=== PATIENT | female | born 2000 | race Caucasian/White ===

== ENCOUNTER 2021-03-10 16:07 | Day surgery (SDC) | payer BC, OTHER, SELFPAY ==
[2021-03-10] VITALS (16 sets, daily range): BP systolic 98–147; BP diastolic 59–97; PULSE 64–101; RESP 12–24; TEMP 36.3–37.3; O2SAT 94–99; BMI 19.8
--- NOTE | 2021-03-10 17:23 | W.ED.ABDPA2 ---
Documented by User: Floyd Montanez DO 03/11/21 16:26 HPI - Abdominal Pain General: Chief Complaint: Abdominal Pain Stated Complaint: RLQ ABD PAIN Time Seen by Provider: 03/10/21 17:10 History of Present Illness: HPI narrative: 19-year-old female beginning of abdominal pain periumbilical migrating to the right lower quadrant began today around 130 progressively worse she has no appetite. She denies nausea vomiting or diarrhea. She states she had her last period 2 weeks ago and is relatively normal. MD elicited complaint: abdominal pain Pertinent past history: none Onset (ago): hour(s) Pain Consistency: constant Location: Periumbilical Severity: moderate Quality: cramping Radiation: none Migration to: RLQ Exacerbating factors: movement Relieving factors: rest Associated Symptoms: Reports anorexia, bloating and GI cramping; Denies belching, change in bowel habits, change in stool character, chills, coffee ground emesis, constipation, diarrhea, dyspepsia, dysuria, excessive flatus, fever(s), heartburn, hematochezia, hematuria, hematemesis, fecal incontinence, loose stools, melena, nausea, poor appetite, syncope and vomiting Related Data: Date of Last Menstrual Period: 03/03/21 Review of Systems Const: Denies: fever(s) or chills ENMT: Denies: throat pain, ear or mastoid pain, nasal discharge or nasal congestion Card: Denies: syncope Resp: Denies: dyspnea, productive cough or non-productive cough GI: Reports: bloating and GI cramping; Denies: nausea, vomiting, hematemesis, coffee ground emesis, heartburn, diarrhea, constipation, belching, excessive flatus, fecal incontinence, change in bowel habits, change in stool character, hematochezia or melena : Denies: dysuria or hematuria Skin/Breast: Denies: rash or pruritus PFSH ED PFSH: Surgical History (Updated 03/10/21 @ 21:38 by Yariel Hou MD) H/O wisdom tooth extraction S/P laparoscopic appendectomy (03/10/21) Female Reproductive History: Date of last menstrual period: 03/03/21 Physical Exam Const: COMMON NORMALS: no acute distress GENERAL APPEARANCE: cooperative and comfortable ORIENTATION/CONSCIOUSNESS: Yes awake, Yes oriented to person, Yes oriented to place and Yes oriented to time HENMT: COMMON NORMALS: normocephalic, atraumatic and hearing grossly normal bilaterally HEAD & SCALP: normocephalic and atraumatic Neck/C-Spine: COMMON NORMALS: no JVD Resp: COMMON NORMALS: normal respiratory effort, No retractions, No use of accessory muscles and clear to auscultation bilaterally AUSCULTATION: clear to auscultation bilaterally Cardio: COMMON NORMALS: no JVD, regular rate, regular rhythm and No murmurs present (Cardio) RATE: regular rate RHYTHM: regular rhythm GI: COMMON NORMALS: No hepatosplenomegaly present AUSCULTATION: Yes normoactive bowel sounds PALPATION: Yes Tenderness to palpation present (GI) Details: RLQ, No Guarding due to palpation present (GI) and Yes No hepatosplenomegaly present Extremity: COMMON NORMALS: normal to inspection, capillary refill normal, no clubbing, cyanosis or edema, no calf tenderness and no pedal edema Neuro: SENSORIUM/ORIENTATION: Yes oriented to person, Yes oriented to place and Yes oriented to time Skin: COMMON NORMALS: no rashes or lesions noted GENERAL SKIN EXAM: no rashes or lesions noted Course Vital Signs: Vital signs: Vital Signs Temperature 97.8 F 03/10/21 22:25 Pulse Rate 86 03/10/21 22:25 Respiratory Rate 14 03/10/21 22:25 Blood Pressure 106/70 03/10/21 22:25 Pulse Oximetry 96 03/10/21 22:25 MDM - Abdominal Pain MDM Narrative: Medical decision making narrative: Patient presents right lower quadrant abdominal pain. CT is pending white count elevated. Care turned over to Dr. Teran at change of shift see his notes for final diagnosis and disposition Lab Data: Labs: Lab Results 03/10/21 03/10/21 03/10/21 Range/Units 17:50 17:50 17:50 WBC 14.0 H (4.5-13.0) 10^3/ uL RBC 4.64 (4.1-5.3) 10^6/u L Hgb 14.3 (11.5-15.3) g/dL Hct 42.7 (37.0-47.0) % MCV 92.0 (81-99) fL MCH 30.8 (28.0-34.0) pg MCHC 33.5 (30.0-36.0) g/dL RDW 11.7 L (12.1-15.1) % Plt Count 227 (130-400) 10^3/c mm MPV 9.4 (7.4-10.4) fL Neut % (Auto) 79.9 % Lymph % (Auto) 14.4 % [place] % (Auto) 4.5 % Eos % (Auto) 0.3 % Baso % (Auto) 0.5 % Neut # (Auto) 11.19 H (1.8-8.0) 10^3/u L Lymph # (Auto) 2.0 (1.5-6.5) 10^3/u L [place] # (Auto) 0.6 (0.2-0.9) 10^3/u L Eos # (Auto) 0.0 (0.0-0.8) 10^3/u L Baso # (Auto) 0.1 (0.0-0.1) 10^3/u L Nucleated RBC % (a uto) 0 % Nucleated RBCs # 0.0 /100WBC Sodium 138 (136-145) mmol/L Potassium 4.3 (3.5-5.1) mmol/L Chloride 101 (98-107) mmol/L Carbon Dioxide 28 (22-29) mmol/L Anion Gap 13.3 (5-19) BUN 11 (6-20) mg/dL Creatinine 0.5 (0.5-0.9) mg/dL GFR Calculation 158.9 H (90-130) mL/min Glucose 99 (65-115) mg/dL Calculated Osmolal ity 285 (285-295) mOsm/k g Calcium 9.8 (8.5-10.5) mg/dL Total Bilirubin 0.4 (0.15-1.2) mg/dL AST 20 (0-32) U/L ALT 15 (0-33) U/L Alkaline Phosphata se 52 (35-105) IU/L Total Protein 8.2 (6.6-8.7) g/dL Albumin 5.4 H (3.5-5.2) g/dL Globulin 2.8 (1.3-4.6) g/dL HCG, Qual Negative (Negative) Urine Color (Yellow) Urine Appearance (CLEAR) Urine pH (5-7) Ur Specific Gravit y (1.005-1.030) Urine Protein (Negative) Urine Glucose (UA) (Normal) Urine Ketones (Negative) Urine Blood (Negative) Urine Nitrate (Negative) Urine Bilirubin (Negative) Prot Sulfosalicyli c Acd (Negative) Urine Urobilinogen (Negative) mg/dL Ur Leukocyte Kourtney ase (Negative) 03/10/21 Range/Units 17:50 WBC (4.5-13.0) 10^3/ uL RBC (4.1-5.3) 10^6/u L Hgb (11.5-15.3) g/dL Hct (37.0-47.0) % MCV (81-99) fL MCH (28.0-34.0) pg MCHC (30.0-36.0) g/dL RDW (12.1-15.1) % Plt Count (130-400) 10^3/c mm MPV (7.4-10.4) fL Neut % (Auto) % Lymph % (Auto) % [place] % (Auto) % Eos % (Auto) % Baso % (Auto) % Neut # (Auto) (1.8-8.0) 10^3/u L Lymph # (Auto) (1.5-6.5) 10^3/u L [place] # (Auto) (0.2-0.9) 10^3/u L Eos # (Auto) (0.0-0.8) 10^3/u L Baso # (Auto) (0.0-0.1) 10^3/u L Nucleated RBC % (a uto) % Nucleated RBCs # /100WBC Sodium (136-145) mmol/L Potassium (3.5-5.1) mmol/L Chloride (98-107) mmol/L Carbon Dioxide (22-29) mmol/L Anion Gap (5-19) BUN (6-20) mg/dL Creatinine (0.5-0.9) mg/dL GFR Calculation (90-130) mL/min Glucose (65-115) mg/dL Calculated Osmolal ity (285-295) mOsm/k g Calcium (8.5-10.5) mg/dL Total Bilirubin (0.15-1.2) mg/dL AST (0-32) U/L ALT (0-33) U/L Alkaline Phosphata se (35-105) IU/L Total Protein (6.6-8.7) g/dL Albumin (3.5-5.2) g/dL Globulin (1.3-4.6) g/dL HCG, Qual (Negative) Urine Color Yellow (Yellow) Urine Appearance Clear (CLEAR) Urine pH 8 H (5-7) Ur Specific Gravit y 1.010 (1.005-1.030) Urine Protein Neg (Negative) Urine Glucose (UA) Norm (Normal) Urine Ketones Negative (Negative) Urine Blood Neg (Negative) Urine Nitrate Negative (Negative) Urine Bilirubin Neg (Negative) Prot Sulfosalicyli c Acd Negative (Negative) Urine Urobilinogen Norm (Negative) mg/dL Ur Leukocyte Kourtney ase Negative (Negative) Discharge Plan Discharge Patient Disposition: Admitted As Inpatient Clinical Impression: Acute appendicitis Condition: Stable Discharge Diet: Advance as tolerated Discharge Activity: Limit activity as instructed Coding Level of Care Code ED Postal Transportation Clerk for Chg Fwd Exam Comprehensive Documented by User: Kaitlin Teran MD 03/10/21 19:53 HPI - Abdominal Pain General: Chief Complaint: Abdominal Pain Stated Complaint: RLQ ABD PAIN Time Seen by Provider: 03/10/21 17:10 [facility] ED PFSH: Surgical History (Updated 03/10/21 @ 21:38 by Yariel Hou MD) H/O wisdom tooth extraction S/P laparoscopic appendectomy (03/10/21) Course Vital Signs: Vital signs: Vital Signs Temperature 97.8 F 03/10/21 22:25 Pulse Rate 86 03/10/21 22:25 Respiratory Rate 14 03/10/21 22:25 Blood Pressure 106/70 03/10/21 22:25 Pulse Oximetry 96 03/10/21 22:25 MDM - Abdominal Pain MDM Narrative: Medical decision making narrative: Patient presents here with acute appendicitis seen on CT scan. I spoke to surgeon on-call and will give patient Cipro and Flagyl and he is can take her to the operating room. Patient has been stable while here she has no signs of perforation. Lab Data: Labs: Lab Results 03/10/21 03/10/21 03/10/21 Range/Units 17:50 17:50 17:50 WBC 14.0 H (4.5-13.0) 10^3/ uL RBC 4.64 (4.1-5.3) 10^6/u L Hgb 14.3 (11.5-15.3) g/dL Hct 42.7 (37.0-47.0) % MCV 92.0 (81-99) fL MCH 30.8 (28.0-34.0) pg MCHC 33.5 (30.0-36.0) g/dL RDW 11.7 L (12.1-15.1) % Plt Count 227 (130-400) 10^3/c mm MPV 9.4 (7.4-10.4) fL Neut % (Auto) 79.9 % Lymph % (Auto) 14.4 % [place] % (Auto) 4.5 % Eos % (Auto) 0.3 % Baso % (Auto) 0.5 % Neut # (Auto) 11.19 H (1.8-8.0) 10^3/u L Lymph # (Auto) 2.0 (1.5-6.5) 10^3/u L [place] # (Auto) 0.6 (0.2-0.9) 10^3/u L Eos # (Auto) 0.0 (0.0-0.8) 10^3/u L Baso # (Auto) 0.1 (0.0-0.1) 10^3/u L Nucleated RBC % (a uto) 0 % Nucleated RBCs # 0.0 /100WBC Sodium 138 (136-145) mmol/L Potassium 4.3 (3.5-5.1) mmol/L Chloride 101 (98-107) mmol/L Carbon Dioxide 28 (22-29) mmol/L Anion Gap 13.3 (5-19) BUN 11 (6-20) mg/dL Creatinine 0.5 (0.5-0.9) mg/dL GFR Calculation 158.9 H (90-130) mL/min Glucose 99 (65-115) mg/dL Calculated Osmolal ity 285 (285-295) mOsm/k g Calcium 9.8 (8.5-10.5) mg/dL Total Bilirubin 0.4 (0.15-1.2) mg/dL AST 20 (0-32) U/L ALT 15 (0-33) U/L Alkaline Phosphata se 52 (35-105) IU/L Total Protein 8.2 (6.6-8.7) g/dL Albumin 5.4 H (3.5-5.2) g/dL Globulin 2.8 (1.3-4.6) g/dL HCG, Qual Negative (Negative) Urine Color (Yellow) Urine Appearance (CLEAR) Urine pH (5-7) Ur Specific Gravit y (1.005-1.030) Urine Protein (Negative) Urine Glucose (UA) (Normal) Urine Ketones (Negative) Urine Blood (Negative) Urine Nitrate (Negative) Urine Bilirubin (Negative) Prot Sulfosalicyli c Acd (Negative) Urine Urobilinogen (Negative) mg/dL Ur Leukocyte Kourtney ase (Negative) 03/10/21 Range/Units 17:50 WBC (4.5-13.0) 10^3/ uL RBC (4.1-5.3) 10^6/u L Hgb (11.5-15.3) g/dL Hct (37.0-47.0) % MCV (81-99) fL MCH (28.0-34.0) pg MCHC (30.0-36.0) g/dL RDW (12.1-15.1) % Plt Count (130-400) 10^3/c mm MPV (7.4-10.4) fL Neut % (Auto) % Lymph % (Auto) % [place] % (Auto) % Eos % (Auto) % Baso % (Auto) % Neut # (Auto) (1.8-8.0) 10^3/u L Lymph # (Auto) (1.5-6.5) 10^3/u L [place] # (Auto) (0.2-0.9) 10^3/u L Eos # (Auto) (0.0-0.8) 10^3/u L Baso # (Auto) (0.0-0.1) 10^3/u L Nucleated RBC % (a uto) % Nucleated RBCs # /100WBC Sodium (136-145) mmol/L Potassium (3.5-5.1) mmol/L Chloride (98-107) mmol/L Carbon Dioxide (22-29) mmol/L Anion Gap (5-19) BUN (6-20) mg/dL Creatinine (0.5-0.9) mg/dL GFR Calculation (90-130) mL/min Glucose (65-115) mg/dL Calculated Osmolal ity (285-295) mOsm/k g Calcium (8.5-10.5) mg/dL Total Bilirubin (0.15-1.2) mg/dL AST (0-32) U/L ALT (0-33) U/L Alkaline Phosphata se (35-105) IU/L Total Protein (6.6-8.7) g/dL Albumin (3.5-5.2) g/dL Globulin (1.3-4.6) g/dL HCG, Qual (Negative) Urine Color Yellow (Yellow) Urine Appearance Clear (CLEAR) Urine pH 8 H (5-7) Ur Specific Gravit y 1.010 (1.005-1.030) Urine Protein Neg (Negative) Urine Glucose (UA) Norm (Normal) Urine Ketones Negative (Negative) Urine Blood Neg (Negative) Urine Nitrate Negative (Negative) Urine Bilirubin Neg (Negative) Prot Sulfosalicyli c Acd Negative (Negative) Urine Urobilinogen Norm (Negative) mg/dL Ur Leukocyte Kourtney ase Negative (Negative) Imaging Data ^: CT Abd/Pel: Attestation: I personally reviewed and interpreted this imaging study as follows: Radiologist's impression: [address] [address] [address] Scan Report Signed with Michaelenda Patient: Mahi Allen Unit #: [id number] : 2000 Age/Sex: 20 / F ADM Date: 03/10/21 Loc: ER Room/Bed: Attending Dr: Ordering Provider/Ordering MD: Floyd Montanez DO Date of Service: 03/10/21 Procedure(s): CT abdomen pelvis w con* [id number] Accession Number(s): [id number] Report Number: [id number]/CT abdomen pelvis w con* [id number] THIS REPORT CONTAINS FINDINGS THAT MAY BE CRITICAL TO PATIENT CARE. The findings were verbally communicated via telephone conference with Dr. Teran at 7:45 PM CDT on 03/10/2021. The findings were acknowledged and understood. Radiation Dose CTDIVOL = (mGy): DLP = 752.09 (mGy-cm) Addendum Dictated By: Juan Solo Addendum Signed By: Juan Solo Signed Date/Time: 03/10/211944 Addendum Cosigned By: PROCEDURE INFORMATION: Exam: CT Abdomen And Pelvis With Contrast Exam date and time: 03/10/2021 6:22 PM Age: 20 years old Clinical indication: Abdominal pain; Localized; Right lower quadrant (rlq); Additional info: Abd pain TECHNIQUE: Imaging protocol: Computed tomography of the abdomen and pelvis with contrast. Radiation optimization: All CT scans at this facility use at least one of these dose optimization techniques: automated exposure control; mA and/or kV adjustment per patient size (includes targeted exams where dose is matched to clinical indication); or iterative reconstruction. Contrast material: OMNI 300; Contrast volume: 75 ml; Contrast route: INTRAVENOUS (IV); COMPARISON: No relevant prior studies available. RADIATION DOSE METRICS: Total DLP (mGy-cm): 752.09 FINDINGS: Liver: Normal. No mass. Gallbladder and bile ducts: Normal. No calcified stones. No ductal dilation. Pancreas: Normal. No ductal dilation. Spleen: Normal. No splenomegaly. Adrenal glands: Normal. No mass. Kidneys and ureters: Normal. No hydronephrosis. Stomach and bowel: Unremarkable. No obstruction. No mucosal thickening. Appendix: Appendix is dilated up to 12 mm. Mild wall thickening. Mild fat stranding in the right lower quadrant near the appendix. Negative for periappendiceal abscess. Intraperitoneal space: No free air. Vasculature: Unremarkable. No abdominal aortic aneurysm. Lymph nodes: Unremarkable. No enlarged lymph nodes. Urinary bladder: Unremarkable as visualized. Reproductive: Unremarkable as visualized. Bones/joints: Unremarkable. No acute fracture. Soft tissues: Unremarkable. CT/CT abdomen pelvis w con* [id number] IMPRESSION: Suspicion for acute appendicitis. Radiation Dose CTDIVOL = (mGy): DLP = 752.09 Discharge Plan Discharge Patient Disposition: Admitted As Inpatient Clinical Impression: Acute appendicitis Condition: Stable Discharge Diet: Advance as tolerated Discharge Activity: Limit activity as instructed Coding Level of Care Code ED Postal Transportation Clerk for augusto Fwd Exam Comprehensive
[2021-03-10] MEDS: sodium chloride 0.9% 1,000 ML 999 ML IV (17:55)
[2021-03-10 18:17] LABS: Add Urine Microscopic? NO; Charge for UA Resulting for Rev
[2021-03-10 18:21] LABS: Bilirubin Urine Neg (Negative); Blood Urine Neg (Negative); Glucose Urine UA Norm (Normal); Ketones Urine Negative (Negative); Leukocyte Esterase Urine Negative (Negative); Nitrate Urine Negative (Negative); Protein Urine Neg (Negative); Sulfosalicylic Acid Urine Negative (Negative); Urine Appearance Clear (CLEAR); Urine Color Yellow (Yellow); Urobilinogen Urine Norm (Negative); pH Urine 8 (5-7)
[2021-03-10 18:25] LABS: Basophils # 0.1 10^3/uL (0.0-0.1); Basophils % 0.5 %; Eosinophils % 0.3 %; Hematocrit 42.7 % (37.0-47.0); Hemoglobin 14.3 g/dL (11.5-15.3); Lymphocytes % 14.4 %; Mean Corpuscular HGB Conc 33.5 g/dL (30.0-36.0); Mean Corpuscular Hemoglobin 30.8 pg (28.0-34.0); Mean Platelet Volume 9.4 fL (7.4-10.4); Monocytes # 0.6 10^3/uL (0.2-0.9); Monocytes % 4.5 %; Neutrophils # 11.19 10^3/uL (1.8-8.0); Neutrophils % 79.9 %; Nucleated Red Blood Cells % 0 %; Platelet Count 227 10^3/cmm (130-400); Red Blood Count 4.64 10^6/uL (4.1-5.3); Red Cell Distribution Width 11.7 % (12.1-15.1)
[2021-03-10 18:35] LABS: Alanine Aminotransferase 15 U/L (0-33); Albumin Level 5.4 g/dL (3.5-5.2); Alkaline Phosphatase 52 IU/L (35-105); Anion Gap 13.3 (5-19); Aspartate Amino Transferase 20 U/L (0-32); Blood Urea Nitrogen 11 mg/dL (6-20); Calcium 9.8 mg/dL (8.5-10.5); Carbon Dioxide 28 mmol/L (22-29); Chloride 101 mmol/L (98-107); Globulin 2.8 g/dL (1.3-4.6); Glomerular Filtration Rate 158.9 mL/min (90-130); Glucose 99 mg/dL (65-115); Osmolality Calculated 285 mOsm/kg (285-295); Potassium 4.3 mmol/L (3.5-5.1); Sodium 138 mmol/L (136-145); Total Bilirubin 0.4 mg/dL (0.15-1.2); Total Protein 8.2 g/dL (6.6-8.7)
[2021-03-10 18:40] LABS: HCG, Serum Qual Negative (Negative)
[2021-03-10] MEDS: iohexol 300 mg/mL 100 mL Btl IV (18:55)
[2021-03-10] MEDS: ciprofloxacin 400 MG/200 ML PREMIX 200 MG IV (20:06)
--- NOTE | 2021-03-10 20:29 | P.HP_ITS ---
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 The pain progressively worsened, did not radiate, worse with physical activity, no relieving factors. She denies any nausea, vomiting, constipation, diarrhea, fevers or chills. No similar episodes in the past. No urinary symptoms. Patient states that she finished her periods last week. Review of Systems General: Reports: 10 or more systems reviewed and unremarkable except in HPI and below Medications/Allergies Home Medications Medication Instructions Recorded Confirmed Last Taken Type Vitamin C 1 tab PO BEDTIME 03/10/21 03/10/21 03/09/21 History bismuth subsalicylate 262 mg PO PRN 03/10/21 03/10/21 03/10/21 13:00 History [Pepto-Bismol] fluoxetine 20 mg PO BEDTIME 03/10/21 03/10/21 03/09/21 History lysine 1 cap PO BEDTIME 03/10/21 03/10/21 03/09/21 History magnesium 1 tab PO BEDTIME 03/10/21 03/10/21 03/09/21 History Allergies Allergy/AdvReac Type Severity Reaction Status Date / Time Penicillins Allergy ALGY-Rash Verified 03/10/21 17:25 PFSH Acute PFSH: Surgical History (Updated 03/10/21 @ 20:49 by Yariel Hou MD) H/O wisdom tooth extraction Female Reproductive History: Date of last menstrual period: 03/03/21 Vitals/I&O/Wt Last Vital Signs Temp 98.2 F 03/10/21 16:27 Pulse 92 03/10/21 20:06 Resp 18 03/10/21 20:06 BP 147/97 03/10/21 20:06 Pulse Ox 99 03/10/21 20:06 03/10/21 03/10/21 03/10/21 06:59 14:59 22:59 Intake Total 1000 / 1000 Balance 1000 / 1000 Weight last 48 hrs Weight 122 lb 9.6 oz Physical Exam Narrative: EXAM NARRATIVE: HEENT: Normocephalic Eye: Sclera /conjunctiva normal Respiratory and chest: Bilateral clear breath sounds on auscultation Cardiovascular: Normal S1 and S2 heart sounds Abdomen: Soft to palpation, tender right lower quadrant, voluntary guarding Neurological: Oriented to place person and time Skin: Intact, no lesions appreciated on gross exam Data : 03/10/21 17:50 03/10/21 17:50 A&P Assessment and plan (1) Acute appendicitis: 20-year-old female with right lower quadrant pain, WBC 14, CT scan showing acute appendicitis Plan for laparoscopic possible open appendectomy Procedure, risks, benefits and alternatives have been discussed with the patient who wishes to proceed with surgery. Status: Resolved Qualifiers: Acute appendicitis type: unspecified acute appendicitis type Qualified Code(s): K35.80 - Unspecified acute appendicitis Attestations Medical Necessity Statement*: Acute appendicitis Coding Level of Care Code Acute Hand Tool Lapper for [facility] Diagnoses Acute appendicitis K35.80 Acute appendicitis type: unspecified acute appendicitis type
[2021-03-10] MEDS: sodium chloride 0.9% 1,000 ML 30 ML IV (20:48)
--- NOTE | 2021-03-10 20:51 | P.ANESASSM_ITS ---
Pre-Anesthetic Assessment Pre-Anesthetic Assessment: Height/Weight: Height 1.68 m Weight 55.61 kg Temp Pulse Resp BP Pulse Ox 98.2 F 98 18 147/97 98 03/10/21 16:27 03/10/21 20:36 03/10/21 20:36 03/10/21 20:36 03/10/21 20:36 Preop Diagnosis: Acute appendicitis Proposed Procedure: Operation Date: 03/10/21 20:45 Proposed Procedures p Laparoscopic Appendectomy(Not Applicable) - Yariel Hou MD Was Beta David taken within 24 hours: N/A Was Clonidine taken within 24 hours: N/A Social: Social History: No alcohol and No tobacco Exam: Pre-Anes Outpt Exam: alert, oriented x 3, clear to auscultation bilaterally and regular rate & rhythm Airway: Submandibular: WNL Cervical ROM: WNL MP: 2 Dentition: Full History/ROS: No significant history except as noted GI: Comments: Acute abdomen Anesthetic Plan: ASA status: 1E Anesthesia: General Other: MOD RSI Risk of > 500 ml blood loss (7ml/kg in children): No PFSH Anesthesia PFSH: Surgical History (Updated 03/10/21 @ 20:49 by Yariel Hou MD) H/O wisdom tooth extraction Female Reproductive History: Date of last menstrual period: 03/03/21 Data Anesthesia CBC & Chem 7: 03/10/21 17:50 03/10/21 17:50 Other Labs: Laboratory Results - last 48 hr 03/10/21 03/10/21 03/10/21 17:50 17:50 17:50 WBC 14.0 H RBC 4.64 Hgb 14.3 Hct 42.7 MCV 92.0 MCH 30.8 MCHC 33.5 RDW 11.7 L Plt Count 227 MPV 9.4 Neut % (Auto) 79.9 Lymph % (Auto) 14.4 [place] % (Auto) 4.5 Eos % (Auto) 0.3 Baso % (Auto) 0.5 Neut # (Auto) 11.19 H Lymph # (Auto) 2.0 [place] # (Auto) 0.6 Eos # (Auto) 0.0 Baso # (Auto) 0.1 Nucleated RBC % (auto) 0 Nucleated RBCs # 0.0 Sodium 138 Potassium 4.3 Chloride 101 Carbon Dioxide 28 Anion Gap 13.3 BUN 11 Creatinine 0.5 GFR Calculation 158.9 H Glucose 99 Calculated Osmolality 285 Calcium 9.8 Total Bilirubin 0.4 AST 20 ALT 15 Alkaline Phosphatase 52 Total Protein 8.2 Albumin 5.4 H Globulin 2.8 HCG, Qual Negative Urine Color Urine Appearance Urine pH Ur Specific [place] Urine Protein Urine Glucose (UA) Urine Ketones Urine Blood Urine Nitrate Urine Bilirubin Prot Sulfosalicylic Acd Urine Urobilinogen Ur Leukocyte Esterase 03/10/21 17:50 WBC RBC Hgb Hct MCV MCH MCHC RDW Plt Count MPV Neut % (Auto) Lymph % (Auto) [place] % (Auto) Eos % (Auto) Baso % (Auto) Neut # (Auto) Lymph # (Auto) [place] # (Auto) Eos # (Auto) Baso # (Auto) Nucleated RBC % (auto) Nucleated RBCs # Sodium Potassium Chloride Carbon Dioxide Anion Gap BUN Creatinine GFR Calculation Glucose Calculated Osmolality Calcium Total Bilirubin AST ALT Alkaline Phosphatase Total Protein Albumin Globulin HCG, Qual Urine Color Yellow Urine Appearance Clear Urine pH 8 H Ur Specific [place] 1.010 Urine Protein Neg Urine Glucose (UA) Norm Urine Ketones Negative Urine Blood Neg Urine Nitrate Negative Urine Bilirubin Neg Prot Sulfosalicylic Acd Negative Urine Urobilinogen Norm Ur Leukocyte Esterase Negative Cardiac Studies: No Data to Display
[2021-03-10] MEDS: metroNIDAZOLE IV 500 MG/100 ML PREMIX 100 MG IV (21:00)
--- NOTE | 2021-03-10 21:41 | P.OP_ITS ---
Operative Report Date of procedure: March 10, 2021 Pre-op Diagnosis: Acute appendicitis Post-op diagnosis: same Procedure Done: Laparoscopic appendectomy Specimens removed/disposition: Appendix Surgeon: Yariel Hou Anesthesia: General Condition: stable Disposition: PACU Procedure: The patient was taken to the Operating Room and intubated under general anesthesia after antibiotic had been administered. Using a 15 blade, a 1-cm infraumbilical incision was made and using open Doris technique, the peritoneal cavity was entered. A 12mm port with balloon was placed and 14 mm of pneumoperitoneum was created and 10-mm 30 degree scope was introduced. Two separate 5mm ports were placed in the left and right lower quadrant under direct visualization. The appendix was noted in the right lower quadrant and appeared acutely inflamed.. Using [place] forceps, an opening was made in the mesoappendix near the base of the appendix. An Endo CARMELA stapler 45mm long 3.5mm blue load was introduced to divide the appendix at it's base. Using electrocaut sana, the mesoappendix including the appendicular artery was divided. There was no bleeding noted and the staple line appeared intact. The right lower quadrant was irrigated with saline and an EndoCatch bag was introduced to remove the appendix. All three ports were removed under direct visualization and there was no bleeding noted on the port sites. 10 cc of 0.5% Marcaine was infiltrated at the port sites. The fascia at the umbilical port was closed using figure of eight 0-Vicryl sutures and subcutaneous tissue was approximated using 3-0 Vicryl and skin at all 3 port sites was closed using 4-0 Monocryl and Dermabond.
--- NOTE | 2021-03-10 21:54 | P.PCN_ITS ---
Documented by User: Gama Freeman CRNA 03/10/21 21:55 PACU note PACU note: VSS, Good respiratory effort, report to GRADER MEAT Post-Anesthesia Exam: awake
--- NOTE | 2021-03-10 21:54 | PM.PACU ---
Documented by User: Gama Freeman CRNA 03/10/21 21:55 PACU note PACU note: VSS, Good respiratory effort, report to COMMERCIAL LOAN COLLECTION OFFICER Post-Anesthesia Exam: awake
[2021-03-10] MEDS: fentaNYL 50 mcg/mL INJ 2mL IVP ×2 (21:56→22:01)
[2021-03-10] MEDS: ondansetron 4 MG Tablet PO (22:35)
[2021-03-10] MEDS: HYDROcodone-acetaminophen 5-325 mg Tablet 2 TAB PO (22:35)
--- NOTE | 2021-03-11 06:45 | ANE.PACU2 ---
Inpatient post-anesthesia follow up: Airway intact: Yes Vital signs: Temperature 97.8 F Pulse Rate [Monito r] 95 Pulse Rate 86 Respiratory Rate 14 Blood Pressure [Le ft Arm] 121/82 Blood Pressure 106/70 Pulse Oximetry 96 Oxygen Delivery Me thod Room Air Oxygen Flow Rate Fraction of Inspir ed Oxygen Hydration adequate: Yes Nausea and vomiting: No Pain level: 2 Mental status: Baseline
== END 2021-03-10 22:56 | disposition home or self-care (01) ==
PROVIDERS: Family Medicine; Emergency Provider Emergency Medicine; Visit Provider Surgery
PROC: 0DTJ4ZZ Resection of Appendix, Percutaneous Endoscopic Approach (ICD-10-PCS; CPT 44970; principal; 2021-03-10 20:45)
DX: K35.80 Unspecified acute appendicitis (principal)
CPT/HCPCS: 44970; 74177; 80053; 81003; 84703; 85025; 88304; J0330; J0744; J1100; J1200; J2405; J2704; J2710; J3010; J3490; J7030; Q0162; Q9967; S0030